=== PATIENT | female | born 1955 | race Two or more races ===

== ENCOUNTER → 2016-07-01 | Outpatient (CLI) | payer OTHER ==
[~2016-07-01] MED LIST: 3N1 COMMODE MC; ASPI-781 PO; CPM MC; DOCU100C26 PO; ESCI10TA48 PO; METO25TA7 PO; OMEP20CA16 PO; OXYC-481 PO; TRAM50TA2 PO; WALK1EAC23 MC
--- NOTE | 2016-07-01 14:42 | RADRPT ---
PROCEDURE: Right knee radiographs. CLINICAL INDICATION: Right knee pain. Postop. TECHNIQUE: Three views. Weight bearing. Frontal, lateral, and patellar view. COMPARISON: 12/16/2015. FINDINGS: There is no fracture or dislocation. The soft tissues are normal. There is a total right knee arthroplasty which appears satisfactory. There is no lytic or blastic lesion. There is no joint effusion. IMPRESSION: 1. Satisfactory postoperative appearance of the right knee. RPTAT: QQ .Gokul Rios MD, Date Time Electronically viewed and signed by .Gokul Rios MD, on 07/01/2016 14:42 .R/
== END | disposition home or self-care (01) ==
LOC: HKI 13:45
PROVIDERS: ATTEND Orthopaedic Surgery
DX: Z09 Encounter for follow-up examination after completed treatment for conditions other than malignant neoplasm (principal); M25.561 Pain in right knee; R73.03 Prediabetes; I10 Essential (primary) hypertension; G62.9 Polyneuropathy, unspecified; Z96.651 Presence of right artificial knee joint; M17.12 Unilateral primary osteoarthritis, left knee
CPT/HCPCS: 73562; Z7500; G0463

== ENCOUNTER 2016-08-13 08:23 | Emergency (ER) | payer OTHER ==
[~2016-08-13] VITALS: Ht 162.6 cm; Wt 72.0 kg
[2016-08-13 08:29] VITALS: Ht 162.6 cm; Wt 72.0 kg
[2016-08-13] MEDS ORDERED: HYDROCODONE/APAP (5/325) TAB PO ONE (09:00)
[2016-08-13] MEDS ORDERED: KETOROLAC 30 MG INJ IM STA (09:55)
--- NOTE | 2016-08-13 11:08 | RADRPT ---
PROCEDURE: XR Chest. CLINICAL INDICATION: Status post fall. TECHNIQUE: Single frontal chest x-ray. COMPARISON: None. FINDINGS: The lungs are clear. No focal opacification is seen. The cardiomediastinal silhouette is unremarka ble. Aortic atherosclerotic vascular calcifications are identified. The osseous structures are unr emarkable. IMPRESSION: 1. There is no acute cardiopulmonary process. RPTAT: PP .Yevgeniy Mendieta MD, MD Date Time Electronically viewed and signed by .Yevgeniy Mendieta MD, on 08/13/2016 11:08 .B/
--- NOTE | 2016-08-13 11:11 | RADRPT ---
PROCEDURE: XR Left Elbow. CLINICAL INDICATION: TRAUMA TECHNIQUE: AP, lateral and oblique views of the left elbow performed. COMPARISON: None. FINDINGS: The soft tissues and bony elements are normal. The joint spaces are normal. No effusion is identifi ed. IMPRESSION: 1. Normal three-view left elbow. RPTAT:AAJJ Physician Eduard Date Time Electronically viewed and signed by Luis Edgar Physician on 08/13/2016 11:11 /
--- NOTE | 2016-08-13 11:12 | RADRPT ---
PROCEDURE: XR Lumbar Spine. CLINICAL INDICATION: Fall. TECHNIQUE: AP, lateral and cone-down lateral view of the lumbar spine were obtained. COMPARISON: No prior studies are available for comparison. FINDINGS: There are degenerative osteophytes in the thoracic and lumbar spine. There are degenerative changes in the facets at L4-5 and L5-S1. There is dorsal disk space narrowing at L4-5 and L5-S1. The neur al canal and nerve root foramina are unremarkable. The sacrum and SI joints are unremarkable. The ribs and innominate bone appear intact. IMPRESSION: 1. Osteoarthritis of the thoracic and lumbosacral spine with bilateral degenerative facet arthropat hy at L4-5 and L5-S1. 2. No acute bony fracture is identified. Physician Eduard Date Time Electronically viewed and signed by Physician Eduard on 08/13/2016 11:12 /
[2016-08-13] MEDS ORDERED: HYDR-906 PO (11:20)
[2016-08-13] MEDS ORDERED: IBUP-1542 PO (11:20)
[2016-08-13 11:38] VITALS: BP 156/79; PULSE 75; RESP 18
--- NOTE | 2016-08-13 13:10 | ERD ---
ER Documentation Chief Complaint Date/Time DATE: 08/13/16 TIME: 13:07 Chief Complaint RT HAND, LOWER BACK, LT ELBOW PAIN S/P SPLIT AND FALL COMING OUT APT HPI This 61-year-old female presents with pain in her lower back for left elbow after tripping and falling forward coming out of the department today. She is slipped down 2 steps. Her pain is primarily in her left lower back and left elbow. She has a small abrasion on her right hand but denies any bony pain or restricted range of motion weakness. There is no history of head injury, neck pain, weakness, additional complaints. ROS All systems reviewed and are negative except as per history of present illness. Medications Home Meds Active Scripts Hydrocodone/Acetaminophen ([place] 5-325 Tablet) 1 Each Tablet, 1 EACH PO QID, # 12 TAB Prov:PARAMJIT LIANG MD 08/13/16 Ibuprofen* (Motrin*) 600 Mg Tab, 600 MG PO Q6H Y for PAIN, #18 TAB Prov:PARAMJIT LIANG MD 08/13/16 Front Wheel Walker* (Front Wheel Walker*) 1 Each Dme, 1 EACH MC DIRECTED, #1 DME 0 Refills Prov:JACQUELYN MACK 06/18/15 CPM: Continuous Passive Motion* (CPM*) 1 Each Dme, 1 EACH MC DIRECTED, #1 DME 0 Refills Prov:JACQUELYN MACK 06/18/15 3 N 1 Commode* (3 N 1 Commode*) 1 Each Dme, 1 EACH MC DIRECTED, #1 DME 0 Refills Prov:JACQUELYN MACK 06/18/15 Tramadol HCl (Tramadol HCl) 50 Mg Tab, 50 MG PO Q6, #60 TAB Prov:JACQUELYN MACK 06/18/15 Oxycodone Hcl* (IR) (Roxicodone*) 5 Mg Tab, 5 MG PO Q4H Y for PAIN LEVEL 1-3, # 30 TAB Prov:JACQUELYN MACK 06/18/15 Aspirin* (Ecotrin*) 325 Mg Tabec, 325 MG PO BID, #90 Prov:JACQUELYN MACK 06/18/15 Reported Medications Omeprazole* (Omeprazole*) 20 Mg Capsule.dr, 20 MG PO DAILY, #30 CAP 06/18/15 Docusate Sodium* (Doc-Q-Lace*) 100 Mg Capsule, 100 MG PO BID Y for CONSTIPATION , CAP 06/18/15 Metoprolol Succinate* (Toprol XL*) 25 Mg Tab.sr.24h, 25 MG PO DAILY, #30 TAB 06/18/15 Escitalopram Oxalate* (Escitalopram Oxalate*) 10 Mg Tablet, 10 MG PO DAILY, #30 TAB 06/18/15 Allergies Allergies: Coded Allergies: sulfamethoxazole (Verified Allergy, Unknown, HIVES, 08/13/16) trimethoprim (Verified Allergy, Unknown, HIVES, 08/13/16) PMhx/Soc History of Surgery: Yes (Bilat knee sx, bilat shoulder sx, bilat wrist sx, R elbow sx, laser sx) Anesthesia Reaction: No Hx Neurological Disorder: No Hx Respiratory Disorders: No Hx Psychiatric Problems: No Hx Miscellaneous Medical Probl: Yes (Osteoporosis, HTN) Hx Alcohol Use: Yes (ON OCC) Hx Substance Use: No Hx Tobacco Use: Yes Smoking Status: Current every day smoker Physical Exam Vitals Vital Signs Date Time Temp Pulse Resp B/P Pulse Ox O2 Delivery O2 Flow Rate FiO2 08/13/16 11:38 75 18 156/79 99 08/13/16 08:29 98.4 71 18 182/88 99 Physical Exam Const: [] Alert, non-ill appearing. Head: Atraumatic Eyes: Normal Conjunctiva ENT: Normal External Ears, Nose and Mouth. Neck: Full range of motion..~ No meningismus. Resp: Clear to auscultation bilaterally Cardio: Regular rate and rhythm, no murmurs Abd: Soft, non tender, non distended. Normal bowel sounds Skin: No petechiae or rashes. Small abrasion on the right palm. Back: No midline or flank tenderness but there is some tenderness generally in the left L2-L4 paraspinous muscles. There is no appreciable midline tenderness or deformities. Some generalized tenderness around her left elbow without deformities, effusion, erythema or warmth. Ext: No cyanosis, or edema Neur: Awake and alert Psych: Normal Mood and Affect Results 24 hrs Current Medications Medications (Trade) Dose Ordered Sig/Pamela Route PRN Reason Start Time Stop Time Status Last Admin Dose Admin Acetaminophen/ Hydrocodone Bitart ([place] (5/325)) 1 tab ONCE ONCE PO 08/13/16 09:00 08/13/16 09:01 DC 08/13/16 08:57 Ketorolac Tromethamine (Toradol) 30 mg ONCE STAT IM 08/13/16 09:55 08/13/16 09:56 DC 08/13/16 10:00 Procedures/MDM AP lateral 2 view x-ray of the elbow shows no fractures, no dislocations. Impression-normal left elbow x-ray AP lateral 2 view lumbar spine x-ray shows no fractures, no dislocations. Impression abnormal lumbar spine x-ray AP 1 view chest x-ray shows no infiltrates no fractures, no widened mediastinum. Impression-normal 1 view chest x-ray Patient is given Toradol 30 mg IM and [place] 5 mg by mouth. Patient was stable immaturity at the request. Patient presents after mechanical fall today with signs and symptoms of lumbar strain, left elbow contusion in the right hand abrasion without evidence of fracture, signs or symptoms of head injury, neck injury, neurologic deficit or additional complications to her fall today. She was treated with a short course of [place] and ibuprofen and observation at home. She shows no signs or symptoms of acute coronary syndrome, PE, significant abdominal or intrathoracic trauma. There is no signs of neck injury, presenting symptoms of head injury. Patient is advised to follow-up with primary doctor this week or return to the ER for any worsening symptoms. Patient's blood pressure was noted to be elevated upon initial evaluation but improved on serial vitals. Patient is advised to follow-up with primary doctor for further evaluation management of her hypertension as well. Departure Diagnosis: Primary Impression: Contusion of elbow, left Additional Impressions: Fall with no significant injury Encounter type: initial encounter Qualified Code: W19.XXXA - Fall with no significant injury, initial encounter Low back sprain Encounter type: initial encounter Qualified Code: S33.9XXA - Low back sprain , initial encounter Hypertension Hypertension type: essential hypertension Qualified Code: I10 - Essential hypertension Condition: Stable Patient Instructions: Back Sprain/Strain, Contusion, Elbow, Fall, Mechanical, Hypertension, Established Additional Instructions: Examines / X KARIME normal hoy. Cheque otro vez con [place] doctor primario en el proximo de la paz or regresa para mas o nueva simptomas. PARAMJIT LIANG MD Aug 13, 2016 13:10
== END 2016-08-13 11:39 | disposition home or self-care (01) ==
LOC: FTE 08:23
DX: S50.02XA Contusion of left elbow, initial encounter (principal); S33.9XXA Sprain of unspecified parts of lumbar spine and pelvis, initial encounter; I10 Essential (primary) hypertension; F17.210 Nicotine dependence, cigarettes, uncomplicated; W10.9XXA Fall (on) (from) unspecified stairs and steps, initial encounter; Y92.9 Unspecified place or not applicable; Z79.82 Long term (current) use of aspirin
CPT/HCPCS: 71010; 72100; 73080; 96372; J1885; Z7502; Z7610